=== PATIENT | male | born 1950 | race African-American/Black ===

== ENCOUNTER 2017-03-12 08:06 | Day surgery (SDC) | payer OTHER ==
--- NOTE | ~2017-03-12 | CN ---
Consultation Report [place] [id number] [facility] [place]. [address] NAME: LASHELL DHILLON : 48 STATUS : REG [facility]#: [id number] AGE: 66 ADM/REG DATE : 03/12/17 MR#: [id number] REPORT SERV DATE: 03/12/17 DICTATED BY: SHELBY MENDOZA DATE: 03/12/17 REPORT STATUS : Draft TRANSCRIBED BY: MODL DATE: 03/12/17 CONSULTATION DATE OF CONSULTATION: Dear Dr. Rashad Castellanos: Thank you for requesting my opinion regarding evaluation and management of Mr. Lashell Dhillon' 2.2 cm left upper lobe lung nodule. Mr. Dhillon is an extremely pleasant 66-year- old gentleman with a significant past medical history of end-stage renal disease, on dialysis, COPD, congestive heart failure, venous thromboembolic disease, on Coumadin, an active smoker, who presents to [facility] for formal evaluation of a suspicious 2.2 cm spiculated lung nodule. Mr. Dhillon states that he had developed a cough since October and he has lost weight unintentionally. He describes his cough as moderate in nature, well localized to the chest, nonradiating with no significant alleviating or exacerbating factors. He states that he had lost some approximately less than 10 pounds and he has been sleeping more throughout the day. He describes his cough as moderate in nature, well localized to the chest, nonradiating with no significant alleviating or exacerbating factors. The patient underwent a CT scan of the chest at [facility], which confirmed the presence of a 2.2 x 1.8 cm spiculated partially cavitating lung nodule in the peripheral aspect of the left upper lobe, presumed to be primary bronchogenic carcinoma. REVIEW OF SYSTEMS: A detailed 14-point review of systems was completed. Pertinent positives and negatives are listed above. PAST MEDICAL HISTORY: 1. Pulmonary embolism. 2. Restless legs syndrome. 3. Irritable bowel syndrome. 4. GERD. 5. COPD. 6. End-stage renal disease, on dialysis. 7. Hypertension. 8. Asthma. 9. Arthritis. 10.Anemia. 11.Allergic rhinitis. 12.Cataracts. 13.Type 2 diabetes. PAST SURGICAL HISTORY: 1. Cataract surgery. 2. Gallbladder surgery. 3. Knee replacement. Consultation Report [place] [id number] [place]. [address] NAME: LASHELL DHILLON : [birth year] STATUS : REG [facility] PAT#: [id number] AGE: 66 ADM/REG DATE : 03/12/17 MR#: [id number] REPORT SERV DATE: 03/12/17 DICTATED BY: SHELBY MENDOZA DATE: 03/12/17 REPORT STATUS : Draft TRANSCRIBED BY: COLIN DATE: 03/12/17 4. Knee surgery. 5. Pacemaker placement. 6. Shoulder surgery. ALLERGIES: NO KNOWN DRUG ALLERGIES. HOME MEDICATIONS: Reviewed and located in the paper chart. FAMILY HISTORY: Arthritis, asthma, COPD, and hypertension. The patient has a family cancer history of colon cancer. SOCIAL HISTORY: The patient smokes one pack per day for approximately 35 years. He denies any significant alcohol or illicit drug abuse. PHYSICAL EXAMINATION: VITAL SIGNS: Reviewed and located in the paper chart. GENERAL: No acute distress. Able to communicate in full paragraphs at a time. HEENT: Normocephalic, atraumatic. Pupils are equal, round, and reactive to light and accommodation. Posterior oropharynx is clear. NECK: No JVD. No LAD. Trachea midline. CARDIOVASCULAR: Regular rate and rhythm. S1 and S2 present. LUNGS: Clear to auscultation bilaterally. ABDOMEN: Nontender, nondistended. Soft. Positive bowel sounds. EXTREMITIES: No clubbing, cyanosis, or edema. SKIN: No new rashes, lesions, or ulcers. PSYCHIATRIC: Alert and oriented x3. Appropriate mood and affect. Appropriate insight and judgment. NEUROLOGIC: 5/5 strength in upper and lower extremities. Cranial nerves 2 through 12 intact. Gait not tested. DTRs not performed. IMAGING: His CT scan of the chest performed at [facility] was personally reviewed by me and demonstrates: 1. A 2.2 cm partially cavitary peripheral lung nodule. 2. Indwelling pacemaker with right atrial biventricular electrode. 3. Degenerative disk disease of the spine. ASSESSMENT AND PLAN: Mr. Lashell Dhillon is an extremely pleasant 66-year-old gentleman with a significant past medical history of heavy tobacco abuse, end-stage renal disease, and coronary artery disease, with an EF of approximately 45% and venous thromboembolic disease on Coumadin, who presents to [facility] with an abnormal CT scan of the chest and cough. The patient also had associated symptoms of anorexia. The clinical radiographic presentation is most consistent with primary bronchogenic carcinoma. According to the solitary pulmonary nodule calculator by the [facility], the pretest probability of malignancy is 93%. Consultation Report [facility] [address] [facility] [place]. [address] NAME: LASHELL DHILLON : [birth year] STATUS : REG [facility] PAT#: [id number] AGE: 66 ADM/REG DATE : 03/12/17 MR#: [id number] REPORT SERV DATE: 03/12/17 DICTATED BY: SHELBY MENDOZA DATE: 03/12/17 REPORT STATUS : Draft TRANSCRIBED BY: MODL DATE: 03/12/17 At this point, Mr. Dhillon needs an appropriate diagnostic intervention. We discussed in detail potential options including CT-guided FNA, thoracic surgery, or EBUS and navigation bronchoscopy. After careful discussion of the risks, benefits, and alternatives to each of these procedures, we agreed to proceed forward with EBUS and navigation bronchoscopy. The patient is aware that the procedure is associated with potential life-threatening risks, including lung collapse, respiratory failure, and even . RECOMMENDATIONS: A summary of my recommendations are as follows: 1. Proceed with EBUS and navigation bronchoscopy. 2. Further [facility]. Thank you for allowing me to participate in Mr. Dhillon' care. BASILIO/COLIN Shelby Mendoza M.D. / [id number] CC: Damián Ramires MD
--- NOTE | ~2017-03-12 | EGD ---
EGD REPORT [facility] [address] [address] NAME: LASHELL DHILLON : [birth year] STATUS : REG [facility]#: [id number] AGE: 66 ADM/REG DATE : 03/12/17 MR#: [id number] REPORT SERV DATE: 03/12/17 DICTATED BY: RUTH MENDOZA DATE: 03/12/17 REPORT STATUS : Draft [facility] DATE: 03/12/17 Pulmonology Patient Name: Lashell Dhillon Procedure Date: 03/12/2017 9:22 AM Date of : 1950 Attending MD: CECI MENDOZA MD Procedure Date No Time: 03/12/2017 Procedure: EBUS Navigational Bronchoscopy Indications: DIGNA lung nodule suspicious for primary bronchogenic carcinoma Providers: CECI MENDOZA MD Referring MD: Rashad Castellanos Medicines: Lidocaine 2% 20 mL Complications: No immediate complications Procedure: Pre-Anesthesia Assessment: - ASA Grade Assessment: IV - A patient with severe systemic disease that is a constant threat to life. - A History and Physical has been performed. Patient meds and allergies have been reviewed. The risks and benefits of the procedure and the sedation options and risks were discussed with the patient. All questions were answered and informed consent was obtained. Patient identification and proposed procedure were verified prior to the procedure by the physician and the nurse in the pre-procedure area in the procedure room. Mental Status Examination: alert and oriented. Airway Examination: normal oropharyngeal airway. Respiratory Examination: poor air movement. CV Examination: normal and RRR, no murmurs, no S3 or S4. ASA Grade Assessment: IV - A patient with severe systemic disease that is a constant threat to life. After reviewing the risks and benefits, the patient was deemed in satisfactory condition to undergo the procedure. The anesthesia plan was to use general anesthesia. Immediately prior to administration of medications, the patient was re-assessed for adequacy to receive sedatives. The heart rate, respiratory rate, oxygen saturations, blood pressure, adequacy of pulmonary ventilation, and response to care were monitored throughout the procedure. The physical status of the patient was re-assessed after the procedure. After obtaining informed consent, the Bronchoscope was introduced through the mouth, via the endotracheal tube (the patient was intubated for the procedure) and advanced to the tracheobronchial tree. the BF [id number] was introduced through the mouth, via the EGD REPORT [address] [address] NAME: LASHELL DHILLON : [birth year] STATUS : REG [facility] PAT#: [id number] AGE: 66 ADM/REG DATE : 03/12/17 MR#: [id number] REPORT SERV DATE: 03/12/17 DICTATED BY: RUTH MENDOZA DATE: 03/12/17 REPORT STATUS : Draft TRANSCRIBED BY: [email or web address] DATE: 03/12/17 endotracheal tube (the patient was intubated for the procedure) and advanced to the tracheobronchial tree. The procedure was accomplished without difficulty. The patient tolerated the procedure well. Findings: The endotracheal tube is in good position. The visualized portion of the trachea is of normal caliber. The lalitha is sharp. The tracheobronchial tree was examined to at least the first subsegmental level. Bronchial mucosa and anatomy are normal; there are no endobronchial lesions, and no secretions. EBUS TBNA of lymph node level 11R x 4 passes for cytology EBUS TBNA of lymph node level 4R x 4 passes for cytology EBUS TBNA of lymph node level 7 x 4 passes for cytology EBUS TBNA of lymph node level 11L x 4 passes for cytology Using SuperDimension Edge catheter 180, peripheral probe EBUS 17s, and fluoroscopy, I performed the following biopsies: DIGNA lung nodule transbronchial needle aspirates x 6 passes for cytology DIGNA lung nodule transbronchial brush biopsy x 2 pass for cytology DIGNA lung nodule transbronchial forcep biopsy x 1 pass for histopathology Bronchoalveolar lavage was performed in the left upper lobe of the lung and sent for routine cytology. 60 mL of fluid were instilled. 10 mL were returned. The return was blood-tinged and cellular. 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 Recommendation: - Await test results. - Chest X-ray. - Complete pulmonary function tests to assess operability. - PET scan. - MRI of the brain with and without contrast - [place] Dr. Leobardo Nelson, [facility]. Attending Participation: I personally performed the entire procedure. CECI MENDOZA MD 03/12/2017 11:33 AM This report has been signed electronically. Number of Addenda: 0 Note Initiated On: 03/12/2017 9:22 AM [address] [address]
[~2017-03-12 08:06] MED LIST: ALBUTEROL0.63 MG/3 INH; CAT1 PO; COUMADIN7.5 MG PO; LINZESS 145 M145 MCG PO; NORCO1 TAB PO; PR25 PO; PROAIR HFA INH; PROTONIX PO; SYMBICORT 160/41 INH INH; XYZAL5 MG PO
[2017-03-12 08:27] LABS: BASOPHILS 0 %; EOSINOPHILS 2.1 %; EOSINOPHILS ABSOLUTE 0.07 10/3/uL (0.0-0.53); HEMATOCRIT 31.3 % (40.0-51.0); HEMOGLOBIN 10.2 g/dL (13.6-17.8); IMMATURE GRANULOCYTES 0.3 %; IMMATURE GRANULOCYTES ABSOLUTE 0.01 10/3/uL (0.0-0.11); LYMPHOCYTES 30.9 %; LYMPHOCYTES ABSOLUTE 1.04 10/3/uL (0.67-4.30); MEAN CORPUS HGB CONC 32.6 g/dL (32.0-36.0); MEAN CORPUSCULAR HEMOGLOB 35.4 pg (26.0-34.0); MEAN CORPUSCULAR VOLUME 108.7 fL (80-100); MEAN PLATELET VOLUME 9.4 fL (9.2-13.0); MONOCYTES ABSOLUTE 0.27 10/3/uL (0.21-1.20); NEUTROPHILS 58.7 %; NEUTROPHILS ABSOLUTE 1.98 10/3/uL (2.02-8.40); PLATELET COUNT 133 10/3/uL (150-400); RBC DISTRIBUTION WIDTH 15.8 % (12.0-16.0); RED CELL COUNT 2.88 10/6/uL (4.7-6.1); WHITE BLOOD CELLS 3.4 10/3/uL (4.5-10.5)
[2017-03-12 08:28] LABS: MANUAL DIFF NO %
[2017-03-12 08:34] LABS: INTERNATIONAL NORMAL RATI 1.4 UNITS (-); PARTIAL THROMBO TIME 33.7 SEC (22.5-37.2)
[2017-03-12 08:47] LABS: CHLORIDE, SERUM 103 MMOL/L (96-112); GLUCOSE, SERUM 97 MG/DL (60-99); POTASSIUM, SERUM 4.4 MMOL/L (3.5-5.3)
[2017-03-12 08:48] LABS: BUN (BLOOD UREA NITROGEN) 23 MG/DL (6-23); CO2 (CARBON DIOXIDE) 31 MMOL/L (24-34); CREATININE 7.59 MG/DL (0.70-1.30); GFR AFRICAN AMERICAN 8 ML/MIN (>=60); GFR NON AFRICAN AMERICAN 7 ML/MIN (>=60); SODIUM, SERUM 138 MMOL/L (135-148)
[2017-04-13] MEDS ORDERED: SENSIPAR30 M1 PO (16:33)
[2017-04-13] MEDS ORDERED: ALIGN4 MG PO (16:39)
== END 2017-03-12 23:59 | disposition home health service (06) ==
LOC: DMU 08:06
PROVIDERS: Anesthesiology; Internal Medicine
PROC: 07B74ZX Excision of Thorax Lymphatic, Percutaneous Endoscopic Approach, Diagnostic (ICD-10-PCS; principal; 2017-03-12 09:30)
PROC: 0BBB8ZX Excision of Left Lower Lobe Bronchus, Via Natural or Artificial Opening Endoscopic, Diagnostic (ICD-10-PCS; 2017-03-12 09:30)
PROC: 0B9B8ZX Drainage of Left Lower Lobe Bronchus, Via Natural or Artificial Opening Endoscopic, Diagnostic (ICD-10-PCS; 2017-03-12 09:30)
DX: R91.1 Solitary pulmonary nodule (principal); I13.2 Hypertensive heart and chronic kidney disease with heart failure and with stage 5 chronic kidney disease, or end stage renal disease; I50.9 Heart failure, unspecified; J44.9 Chronic obstructive pulmonary disease, unspecified; M19.90 Unspecified osteoarthritis, unspecified site; N18.6 End stage renal disease; G25.81 Restless legs syndrome; E11.22 Type 2 diabetes mellitus with diabetic chronic kidney disease; K21.9 Gastro-esophageal reflux disease without esophagitis; J45.909 Unspecified asthma, uncomplicated; D63.1 Anemia in chronic kidney disease; Z86.711 Personal history of pulmonary embolism; Z95.810 Presence of automatic (implantable) cardiac defibrillator; Z79.01 Long term (current) use of anticoagulants; Z79.899 Other long term (current) drug therapy; F17.210 Nicotine dependence, cigarettes, uncomplicated; Z88.0 Allergy status to penicillin; Z90.49 Acquired absence of other specified parts of digestive tract; Z98.890 Other specified postprocedural states
CPT/HCPCS: 71010; 80048; 85025; 85610; 85730; 88112; 88172; 88173; 88305; 93005; C1725; C1769; J2250; J2405; J2710; J3010